=== PATIENT | male | born 1990 | race Caucasian/White ===

== ENCOUNTER 2019-08-18 13:49 | Emergency (ER) | payer BC, SELFPAY ==
[2019-08-18 14:26] VITALS: BP 146/92; PULSE 94; RESP 19; TEMP 37.2; O2SAT 97; BMI 33.9
--- NOTE | 2019-08-18 14:34 | HMH.EDUTC ---
[facility] [place] Disposition Clinical Impression: Encounter to obtain excuse from work Disposition: Home, Self-Care Condition on Discharge: Good Instructions: Preventing the Spread of Coronavirus Discharge Instructions, DI for Nausea -- Adult, Nausea and Vomiting-Adult, Diarrhea Additional Instructions: Over the counter Motrin and/or Tylenol as directed on package for pain and fever *IF you start having fever or any signs of COVID19 may return for testing Return if needed Follow up with Family doctor for further treatment and evaluation if no improvement or any worsening of symptoms in the next 48-72 hours Straight to ER if any life threatening symptoms Referrals: Miranda Messina APRN [Primary Care Provider] - As needed Forms: Work/School Release Time of Disposition: 14:49 Medical Decision Making - Floyd Inquiry Pt receiving controlled substance: No Floyd was queried for this patient: No Vital Signs: 08/18/19 14:26 Temperature 98.9 F Temperature Source Oral Pulse Rate [Right Brachial] 94 H Respiratory Rate 19 Blood Pressure [Right Arm] 146/92 H Blood Pressure Mean [Right Arm] 110 Blood Pressure Source [Right Arm] Automatic Cuff Blood Pressure Position [Right Arm] Sitting 02 Sat by Pulse Oximetry 97 Oxygen Delivery Method Room Air [facility] [place] HPI - General Stated complaint: Dr root Time Seen by Provider: 08/18/19 14:35 Mode of Arrival: Ambulatory Source of Information: Patient Limitations: No Limitations Description of Symptoms (Recalled from Triage Doc. by RN): PATIENT WAS SENT HOME FROM WORK LAST NIGHT BECAUSE HE VOMITED ONCE AND HAD A HEADACHE, WHICH HIS EMPLOYED STATED WAS SYMPTOMS OF COVID. PATIENT IS NEEDING A WORK NOTE TO RETURN TO WORK. HE CURRENTLY DENIES ANY SYMPTOMS HEENT Symptoms (Recalled from RN notes): No Resp Symptoms (Recalled from RN notes): No Skin Symptoms (Recalled from RN notes): No MS Symptoms (Recalled from RN notes): No Functional Status (Recalled from RN notes): WNL - History of Present Illness Provider Complaint: Patient states that yesterday he woke up with upset stomach yesterday when he woke up and headache States that he had drink some beer then night before and sometimes this happens after drinking. States that also the air conditioning is out of his car and it was hot yesterday so when he got to work they sent him home because of low grade temp and upset stomach and headache, told him that those was COVID symptoms and he needed to be checked States that he went to [facility] last night and they didnt test him because his temp was normal and no longer having any upset stomach and sent him home States that work wouldnt let him return without a note so he came in today to get one. Denies fever, denies chills, denies N/V/D - Related Data Allergies Allergy/AdvReac Type Severity Reaction Status Date / Time From [facility] MEDICATION 10 Allergy Unknown OPTIC Uncoded 02/08/17 14:50 NERVE EDEMA - Worker's Comp Is this a Worker's Comp case?: No [facility] History - Hepatitis A Screen Drug use history?: No High risk sexual behaviors?: No History of sexually transmitted infection?: No Currently employed?: No Childcare worker?: No Do you have indoor plumbing?: Yes Do you have electricity?: Yes Attestation statement:: This patient has been screened for Hepatitis A risk factors. I have reviewed the patient's past medical history: Yes - Social History Smoking Status: Current every day smoker Tobacco Type: cigarettes # Packs/Day (cigarettes): 1 Alcohol Intake: never Occupational Status: other ROS Obtained: Yes All systems reviewed & no additional complaints, Yes Systems reviewed as appropriate & no additional complaints - Constitutional Constitutional: Denies body ache, Denies chills, Denies fever(s), Denies headache(s) - ENT Ears, Nose, Mouth, and Throat: Reports system reviewed and no additional complaints, except as docu, Denies nasal congestion, Denies nasal discharge, De
[2019-08-18 14:59] VITALS: BP 146/92; PULSE 94; RESP 19; TEMP 37.2; O2SAT 97
== END 2019-08-18 15:01 | disposition home or self-care (01) ==
PROVIDERS: Emergency Provider Nurse Practitioner; PCP Nurse Practitioner
DX: Z02.89 Encounter for other administrative examinations (principal); Z88.8 Allergy status to other drugs, medicaments and biological substances; F17.210 Nicotine dependence, cigarettes, uncomplicated
CPT/HCPCS: 99201

== ENCOUNTER 2022-08-31 05:14 | Emergency (ER) | payer BC, SELFPAY ==
[2022-08-31 05:15] VITALS: BP 131/92; PULSE 84; RESP 19; TEMP 36.7; O2SAT 98; BMI 35.9
--- NOTE | 2022-08-31 05:50 | PC.NURSE ---
MD at bedside, verbal orders received
[2022-08-31 06:05] VITALS: BP 119/86; PULSE 75; RESP 17; TEMP 36.7; O2SAT 98
--- NOTE | 2022-08-31 06:06 | HMH.EDEAR ---
Discharge Plan Disposition Patient Disposition: Home, Self-Care Prescriptions Prescriptions: New cephalexin [cephalexin] 500 mg capsule 500 mg PO TID Qty: 21 0RF Referrals Follow up/Referrals: Miranda Messina APRN [Primary Care Provider] - See instructions Clinical Impressions Clinical Impression: Otitis media Instructions Patient Instructions: DI for Ear Pain-Adult Discharge ED Provider: Cheryl (ED)Sami Ear HPI General Chief complaint: Ear Stated complaint: Left ear pain Time Seen by Provider: 08/31/22 05:30 Mode of Arrival: Family Vehicle Source of Information: Patient and Medical Record Limitations: No Limitations Description of Symptoms (Recalled from ER Triage Doc. by RN): Pt c/o Left ear pain that began yesterday. States the pain went away and he was able to go to sleep. This morning the pain awoke his at 0430 and he took Tylenol, however it has not helped him. Denies any fever, chills, or N/V/F. He reports decrease hearing from Left ear. Denies any recent swimming or ear trauma. Denies any ear drainage. History of Present Illness HPI Narrative: lt sided ear pain over since yesterday - no other c/o MD Complaint: ear pain Location: left ear Duration: intermittent Severity: moderate Relieving factors: NDAIDs Discharge from ear: no Associated symptoms ear: decreased hearing Treatment prior to arrival: none Related Data Previous Rx's Medication Instructions Recorded cephalexin 500 mg capsule 500 mg PO TID #21 caps 08/31/22 Allergies Allergy/AdvReac Type Severity Reaction Status Date / Time From [facility] MEDICATION 10 Allergy Unknown OPTIC Uncoded 02/08/17 14:50 NERVE EDEMA [facility] Disclaimer: The information contained in this section may have been updated after the patient was seen, as this information can be updated by other users. Social History Smoking Status: Former smoker alcohol intake: never current occupational status: other Travel in the last 8 weeks: None ROS Obtained: Yes All systems reviewed & no additional complaints except as documented Physical Exam General General appearance: alert Head Head exam: normocephalic Eye Eye exam: Present PERRL and EOMI ENT ENT exam: Present mucous membranes moist Expanded ENT Exam TM/Canal exam: Left TM: erythema and effusion Neck Neck exam: Present trachea midline Respiratory Respiratory exam: Absent respiratory distress Cardiovascular Cardiovascular exam: Present regular rate Abdominal Exam Abdominal exam: Present soft Extremities Exam Extremities exam: Present full ROM Neurological Exam Neurological exam: Present alert, oriented X3 and CN II-XII intact; Absent motor sensory deficit Psychiatric Psychiatric exam: Present normal affect Skin Skin exam: Absent rash Medical Decision Making Medical Records Medical records reviewed: Yes I reviewed the patient's medical records. Floyd Inquiry Pt receiving controlled substance: No Vital Signs: 08/31/22 05:15 Temperature 98.0 F Temperature Source Oral Pulse Rate [Right] 84 Respiratory Rate 19 Blood Pressure [Right Arm] 131/92 H Blood Pressure Mean [Right Arm] 105 Blood Pressure Source [Right Arm] Automatic Cuff 02 Sat by Pulse Oximetry 98 Oxygen Delivery Method Room Air Lab Data Lab results reviewed: Yes I reviewed the patient's lab results. Orders (Tests/Meds): ED MEDICATIONS Discontinued Medications Generic Name Dose Route Start Last Admin Trade Name Fabq PRN Reason Stop Dose Admin Acetaminophen/Codeine Phosphate 1 packet 08/31/22 05:57 08/31/22 06:00 Acetaminophen 300mg W/Codeine 30mg Take Home Pack (6) PO 08/31/22 05:58 1 packet ONCE ONE Administration Cephalexin HCl 500 mg 08/31/22 05:57 08/31/22 06:00 Cephalexin 500mg Capsule PO 08/31/22 05:58 500 mg ONCE ONE Administration Ibuprofen 600 mg 08/31/22 05:44 08/31/22 05:49 Ibuprofen 600 Mg Tablet PO 08/31/22 05:45 600 mg ONCE ONE Admini
== END 2022-08-31 06:16 | disposition home or self-care (01) ==
PROVIDERS: Emergency Provider Emergency Medicine; PCP Nurse Practitioner
DX: H66.92 Otitis media, unspecified, left ear (principal); Z87.891 Personal history of nicotine dependence
CPT/HCPCS: 99283; 99284